=== PATIENT | male | born 1980 | race Caucasian/White ===

== ENCOUNTER 2023-11-17 08:14 | Emergency (ER) | payer OTHER, BC, SELFPAY ==
--- NOTE | 2023-11-17 08:21 | ED.WOUNDLAC ---
HPI - Wound/Laceration General Chief Complaint: Wound/Laceration Stated Complaint: L LOWER LEG LACERATION Time Seen by Provider: 11/17/23 08:21 Source: patient Mode of arrival: ambulatory Limitations: no limitations History of Present Illness HPI narrative: Mr. Lowery is a 43 year old male patient presenting to the clinic today with c/o a laceration to his left lower leg. He reports he cut his left lower leg yesterday. States he jumped down and hit his leg on a piece of rebar from a dumpster. put some butterfly Band-Aids over the area and was draining some clear discharge. Does have mild redness around the laceration with clear discharge. Related Data Home Medications Medication Instructions Recorded Confirmed albuterol sulfate 90 mcg/actuation 2 puff inhalation Q4-6H 11/17/23 11/17/23 aerosol inhaler bronchospasm Allergies Allergy/AdvReac Type Severity Reaction Status Date / Time No Known Allergies Allergy Verified 11/17/23 08:24 Review of Systems Review of Systems: Pertinent positives per HPI. Patient denies any fever, chills, rash, headache, visual changes, dizziness, cough, runny nose, sore throat, shortness of breath, chest pain, palpitations, nausea, vomiting, diarrhea, constipation, abdominal pain, or any urinary issues. [facility] Family History Family History Mother Family history of mental disorder Depression Father Carcinoma of colon Social History Social History Smoking status: Current every day smoker Alcohol intake: current Substance use: never Substance use type: does not use Comments At the time of my signature, I reviewed and agree with the nursing past medical, surgical, social, and family history. There is no relevant family history pertinent to the patient complaint. Exam Narrative: General: Well-developed, well nourished, in no apparent distress Head: Normocephalic, atraumatic. Cardio: Regular rate and rhythm, s1 and s2 normal, no murmur appreciated. Resp: Clear to auscultation bilaterally, no rhonchi, rales, wheezing or rubs. Integumentary: [place], warm, and dry, 3 cm laceration to the left lower anterior leg, mild redness with clear discharge Course Course Emergency Course: Portions of this record may have been created with voice recognition software. Level of Care: Express Care Visit Vital Signs Vital signs: Vital signs reviewed MDM - Wound/Laceration MDM Narrative Medical decision making narrative: At the time of visit patient is resting comfortably on the exam table. Patient appears to be nontoxic. Medications: Tdap 0.5 mL IM Plan: I suspect patient has a open noninfected laceration to the left lower anterior leg. Wound was closed using Steri-Strips as the wound is over [address] the patient on cephalexin as a antibiotic prophylactic. Tdap was given in the clinic today. Supportive measures were discussed with the patient and they voiced understanding discharge instructions and agrees to treatment plan. Return precautions reviewed Differential Diagnosis Differential diagnosis: Likely laceration, abscess, abrasion, avulsion of skin and other Discharge Plan Discharge Clinical Impression: Laceration of left leg Qualifiers: Encounter type: initial encounter Qualified Code(s): S81.812A - Laceration without foreign body, left lower leg, initial encounter Patient Disposition: Home, Self-Care Condition: Stable Instructions: Antibiotic Form, Laceration (ED), Steristrips (ED) Additional Instructions: Tdap was updated in the clinic today. Wound was cleansed in the clinic today and Steri-Strips were applied. Take Keflex as prescribed Keep wound clean and dry Keep Steri-Strips in place for as long as possible-do not remove-allow them to fall off on their own No swimming while wound is open Watch
[2023-11-17 08:22] VITALS: BP 161/86; PULSE 115; RESP 18; TEMP 36.9; O2SAT 100
[2023-11-17 08:24] VITALS: BP 161/86; PULSE 115; RESP 18; TEMP 36.9; O2SAT 100
[2023-11-17] MEDS: TETANUS,DIPHTHERIA,AC PERTUSSIS ADULT (0.5 ML) BOOSTRIX IM (08:34)
== END 2023-11-17 08:46 | disposition home or self-care (01) ==
PROVIDERS: Emergency Provider Nurse Practitioner Family; PCP Emergency Medicine
DX: S81.812A Laceration without foreign body, left lower leg, initial encounter (principal); W22.8XXA Striking against or struck by other objects, initial encounter; Z23 Encounter for immunization; F17.200 Nicotine dependence, unspecified, uncomplicated
CPT/HCPCS: 90471; 90715; 99213; G0463

== ENCOUNTER 2025-01-04 01:09 | Day surgery (SDC) | payer OTHER, BC, SELFPAY ==
[2024-12-25 08:37] VITALS: BMI 23.6
[2025-01-04 06:48] VITALS: BP 170/104; PULSE 120; RESP 16; TEMP 36.9; O2SAT 100; BMI 22.4
[2025-01-04] MEDS: LACTATED RINGERS 1,000 ML 150 ML IV CONT (07:10)
--- NOTE | 2025-01-04 07:33 | P.PNAN_ITS ---
Anes - Initial Pre Proc Eval Procedure: Operation Date: 01/04/25 08:00 Proposed Procedures p Screening Colonoscopy - Channing Monte DO Date/Time: 01/04/25 07:33 Surgeon: Channing Monte DO Pre Op Diagnosis: Neoplasm screening Patient Data Age: 44 Gender: M Height: 1.78 m Weight: 71 kg Last Vital Signs Temp 98.5 F 01/04/25 06:48 Pulse 120 H 01/04/25 06:48 Resp 16 01/04/25 06:48 BP 170/104 H 01/04/25 06:48 Pulse Ox 100 01/04/25 06:48 O2 Del Method Room Air 01/04/25 06:48 Allergies Allergy/AdvReac Type Severity Reaction Status Date / Time No Known Allergies Allergy Verified 01/04/25 06:46 Home Medications ?Medication ?Instructions ?Recorded ?Confirmed ?Type albuterol sulfate 90 mcg/actuation See Rx Instructions .Route 06/02/24 12/25/24 Rx aerosol inhaler .COMPLEX #8.5 grams mometasone-formoterol HFA 200 2 puff inhalation DAILY #39 grams 10/06/24 12/25/24 Rx mcg-5 mcg/actuation aerosol inhaler (Dulera) alprazolam 2 mg tablet,extended 2 mg PO DAILY #30 tabs 12/15/24 01/04/25 Rx release 24 hr alprazolam 0.5 mg tablet 0.5 mg PO BID PRN anxiety #6 0 tabs 12/28/24 01/04/25 Rx Patient hx anesthesia problems: none Family hx anesthesia problems: none Results Review: All pre-operative results and documents have been reviewed as part of the pre- operative evaluation. [facility] Family History Family History Mother Family history of mental disorder Depression Father Carcinoma of colon Social History Social History Smoking packs per day: 1 Smoking cigarettes per day: 20.0 Years smoked: 22 Smoking pack-years: 22.00 Smoking status: Current every day smoker Tobacco type: cigarettes Alcohol intake: current Drinks per week: 10 Alcohol use details: occcasional Substance use: never Substance use type: does not use Living arrangements: with family Spiritual care concerns: No Anes - Eval Final PreProcedure Day of Procedure 01/04/25 07:33 Patient weight: normal Lungs: normal air movement Airway: Mallampati scale class II Neurological: alert and oriented Last oral intake: >/= 8 hours ASA classification: II Emergent: no Anesthetic plan: proceed Anesthesia type and monitoring: general GIVS and standard monitoring Results Review: All pre-operative results and documents have been reviewed as part of the pre- operative evaluation. Smoker, 25 pack years, smoked at 6 am today, anxiety/asthma. Informed Consent: The patient's anesthetic plan and its attendant risks and benefits were discussed with the patient/family/POA. Questions were solicited and answers provided to the satisfaction of the patient/family/POA.
--- NOTE | 2025-01-04 08:09 | P.HP_ITS ---
H&P: HPI History of Present Illness Date/Time: 01/04/25 08:09 Chief Complaint: Family history of colon cancer Narrative: This is a 44-year-old man who presents for his 1st colonoscopy. He he has a family of colon cancer in his father. He denies any hematochezia or melena. He did have a Cologuard test about 5 years ago which was normal. Review of Systems Review of Systems: All systems reviewed & are unremarkable except as noted in HPI and below Constitutional: Constitutional: Denies chills, Denies fever(s), Denies headache(s) and Denies weight loss Eyes: Eyes: Denies change in vision ENT: Denies dizziness, Denies headache(s), Denies neck mass and Denies throat swelling Cardiovascular: Cardiovascular: Denies chest pain, Denies lightheadedness and Denies dyspnea Respiratory: Respiratory: Denies cough, Denies dyspnea and Denies wheezing Gastrointestinal: Gastrointestinal: Denies abdominal pain, Denies change in bowel habits, Denies nausea and Denies vomiting Genitourinary: Genitourinary: Denies hematuria and Denies dysuria Musculoskeletal: Musculoskeletal: Reports as per HPI Integumentary/Breasts: Skin/Breast: Reports as per HPI Neurologic: Denies dizziness and Denies headache(s) Allergic/Immunologic: Allergic/Immunologic: Denies throat swelling and Denies wheezing [facility] Family History Family History Mother Family history of mental disorder Depression Father Carcinoma of colon Social History Social History Smoking packs per day: 1 Smoking cigarettes per day: 20.0 Years smoked: 22 Smoking pack-years: 22.00 Smoking status: Current every day smoker Tobacco type: cigarettes Alcohol intake: current Drinks per week: 10 Alcohol use details: occcasional Substance use: never Substance use type: does not use Living arrangements: with family Spiritual care concerns: No Meds Home Medications and Allergies Home Medications ?Medication ?Instructions ?Recorded ?Confirmed ?Type albuterol sulfate 90 mcg/actuation See Rx Instructions .Route 06/02/24 12/25/24 Rx aerosol inhaler .COMPLEX #8.5 grams mometasone-formoterol HFA 200 2 puff inhalation DAILY #39 grams 10/06/24 12/25/24 Rx mcg-5 mcg/actuation aerosol inhaler (Dulera) alprazolam 2 mg tablet,extended 2 mg PO DAILY #30 tabs 12/15/24 01/04/25 Rx release 24 hr alprazolam 0.5 mg tablet 0.5 mg PO BID PRN anxiety #6 0 tabs 12/28/24 01/04/25 Rx Allergies Allergy/AdvReac Type Severity Reaction Status Date / Time No Known Allergies Allergy Verified 01/04/25 06:46 Vital Signs Vital Signs - 24 hr 01/04/25 06:48 Temperature 98.5 F Pulse Rate 120 H Respiratory Rate 16 Blood Pressure 170/104 H Pulse Oximetry 100 Oxygen Delivery Room Air Exam Const: General: no acute distress and alert Orientation/consciousness: patient oriented x3 HENMT: Head: normocephalic and atraumatic Ears: hearing grossly normal bilaterally Face/Nose/Sinus: Normal nares present Mouth: Yes Normal oral and palatal mucosa present Eyes: Periorbital: periorbital findings normal Sclera: sclerae normal EOM: EOMs intact bilaterally Neck: Neck: normal visual inspection, no lymphadenopathy and trachea midline Chest: Chest palpation & inspection: normal inspection of the chest Resp: Effort & Inspection: normal respiratory effort Auscultation: clear to auscultation bilaterally Cardio: Jugular venous distension: no JVD Rate: regular rate Rhythm: regular rhythm Heart sounds: S1 normal heart sound present and S2 normal heart sound present Peripheral pulses: Peripheral pulses 2+ throughout GI: Inspection: normal to inspection GI Palp: Yes Soft to palpation, No Tenderness to palpation present (GI), No Guarding due to palpation present (GI) and No Rebound tenderness present Percussion: Yes normal to percussion Auscultation: normal bowel sounds : General: Yes no CVA tenderness Back/Spine/Pelvis: Back: no CVA tenderness Neuro: General: patient oriented x3, no focal motor deficits and CN's II-XI intact bilaterally Cognition (Neuro): normal cognition Speech: normal speech Motor exam (neuro): 5/5 motor strength present throughout Extrem: General: capillary refill normal and no clubbing, cyanosis or edema Assessment and Plan Assessment and plan (1) Family hx of colon cancer: Code(s): Z80.0 - Family history of malignant neoplasm of digestive organs Status: Acute Assessment and Plan: I have recommended colonoscopy. I have discussed the procedure, risks, benefits, and alternatives. Questions were answered. Patient is agreeable to proceed.
--- NOTE | 2025-01-04 08:40 | S_PTH ---
PATIENT: Vimal Lowery LOC: [facility] U#:[id number] AGE/SX: 44/M ROOM: RE01/04/[address]: Channing Monte DO : 1980 BED: DIS: 01/04/2025 SPEC #: [id number] RECD: 01/04/25 10:06 STATUS: GUY REQ #: [id number] ANÍBAL: 01/04/25 08:[address]: Channing Monte DEPT: [facility] Surgical RECD BY: Portia Lacy ENTERED: 01/04/25 10:06 SP TYPE: Surgical OTHR DR: Donna Abbott MD Tissues: A - Colon Polypectomy B - Colon Polypectomy Procedures: Hematoxylin and Eosin Stain Gross and Microscopic Level 4
[2025-01-04 08:44] VITALS: BP 107/70; PULSE 83; RESP 23; O2SAT 98
[2025-01-04 08:54] VITALS: BP 119/86; PULSE 85; RESP 22; O2SAT 99
[2025-01-04 09:04] VITALS: BP 135/89; PULSE 77; RESP 22; O2SAT 99
== END 2025-01-04 09:27 | disposition home or self-care (01) ==
PROVIDERS: PCP Family Medicine; Visit Provider Surgery
PROC: 0DJD8ZZ Inspection of Lower Intestinal Tract, Via Natural or Artificial Opening Endoscopic (ICD-10-PCS; CPT 45378; principal; 2025-01-04 08:00)
DX: Z12.11 Encounter for screening for malignant neoplasm of colon (principal); D12.0 Benign neoplasm of cecum; D12.3 Benign neoplasm of transverse colon; K64.8 Other hemorrhoids; Z80.0 Family history of malignant neoplasm of digestive organs; F17.210 Nicotine dependence, cigarettes, uncomplicated
CPT/HCPCS: 45380; 45385; 88305; J2003; J2704; J7120